=== PATIENT | male | born 1965 | race Caucasian/White ===

== ENCOUNTER 2025-03-27 15:15 | Emergency (ER) | payer OTHER ==
[~2025-03-27] VITALS: Ht 172.7 cm; Wt 95.0 kg
[2025-03-27 15:18] VITALS: O2SAT 99
[2025-03-27] MEDS: LIDOCAINE HCL/EPINEPHRINE 1%-EPI 1:100,000 20ML VIAL MC ONE (17:00)
[2025-03-27] MEDS: BACITRACIN ZINC OINT UDPKT TOP ONE (18:21)
[2025-03-27] MEDS: KETOROLAC 15MG/ML VIAL IM ONE (18:21)
[2025-03-27] MEDS: TETANUS, DIPHTHERIA, PERTUSSIS VAC/PF 0.5ML (>10YR OLD) IM ONE (18:22)
[2025-03-27 18:56] LABS: BASOPHILS % 0.4 % (0.0-2.0); EOSINOPHILS % 1.2 % (0.0-5.0); HEMATOCRIT. 39.6 % (42.0-52.0); HEMOGLOBIN. 13.0 g/dL (14.0-18.0); LYMPHOCYTES % 19.6 % (20.0-50.0); MEAN PLATELET VOLUME 9.0 fl (7.4-10.4); MONOCYTES % 4.6 % (2.0-8.0); NEUTROPHILS % 74.2 % (40.0-76.0); PLATELET 113 x1000/uL (130-400); RED BLOOD CELL COUNT 4.33 mill/uL (4.7-6.1); RED CELL DISTRIBUTION WIDTH 14.2 % (11.6-14.6)
[2025-03-27 19:09] LABS: CREATININE 0.9 mg/dL (0.6-1.3); UREA NITROGEN BLOOD 11 mg/dL (9-23)
[2025-03-27] MEDS ORDERED: IBUP-1455 MT (19:41)
[2025-03-27] MEDS ORDERED: BO1 TP (19:41)
[2025-03-27 20:00] VITALS: BP 128/86; PULSE 82; RESP 16; TEMP 36.9; O2SAT 99
== END 2025-03-27 20:01 | disposition home or self-care (01) ==
LOC: ER 15:15
DX: S91.312A Laceration without foreign body, left foot, initial encounter (principal); V13.4XXA Pedal cycle driver injured in collision with car, pick-up truck or van in traffic accident, initial encounter; Y93.55 Activity, bike riding; Y93.89 Activity, other specified; Y92.410 Unspecified street and highway as the place of occurrence of the external cause; Y99.8 Other external cause status
CPT/HCPCS: 80048; 85025; 36415; 73600; 90715; 12002; 90471; 96372; 99284; J1885; Z7610